=== PATIENT | female | born 1990 | race African-American/Black ===

== ENCOUNTER 2017-03-30 21:07 | Emergency (ER) | payer MEDICARE, BC ==
[~2017-03-30] VITALS: Ht 162.6 cm; Wt 75.0 kg
[2017-03-30 21:11] VITALS: Ht 162.6 cm; Wt 75.0 kg
[2017-03-30] MEDS ORDERED: SOD CHLORIDE 0.9% 1,000 ML IV STA (23:56)
[2017-03-30] MEDS ORDERED: ONDANSETRON 4 MG INJ IV STA (23:56)
[2017-03-31] MEDS ORDERED: CITA10TA84 PO (00:34)
[2017-03-31] MEDS ORDERED: ASPI325T4 PO (00:34)
[2017-03-31] MEDS ORDERED: TACR1CAP PO (00:34)
[2017-03-31] MEDS ORDERED: PRAV20TA2 PO (00:34)
[2017-03-31] MEDS ORDERED: METF500T4 PO (00:34)
[2017-03-31] MEDS ORDERED: LOSA25TA5 PO (00:34)
--- NOTE | 2017-03-31 00:36 | ERD ---
ER Documentation Chief Complaint Date/Time DATE: 03/31/17 TIME: 00:32 Chief Complaint nausea vomiting diarrhea x 2 days HPI 26-year-old female presents to emergency department for complaints of multiple episodes of vomiting and diarrhea for 2 days. Patient denies any abdominal pain. Patient denies any blood in the stool or black stool. Patient denies any blood in the vomit. She denies hematuria or dysuria. Patient denies any fever or chills. Patient did not take any medication to help with symptoms. ROS All systems reviewed and are negative except as per history of present illness. Medications Home Meds Reported Medications Pravastatin Sodium (Pravastatin Sodium) Unknown Strength Tablet, PO HS, TAB 03/31/17 Losartan Potassium* (Losartan Potassium*) Unknown Strength Tablet, PO DAILY, TAB 03/31/17 Citalopram Hydrobromide* (Citalopram Hydrobromide*) Unknown Strength Tablet, PO DAILY, #30 TAB 03/31/17 Metformin Hcl* (Metformin Hcl*) Unknown Strength Tablet, PO WITH BREAKFAST DINNE , #60 TAB 03/31/17 Aspirin* (Aspirin*) Unknown Strength Tablet, PO DAILY, TAB 03/31/17 Tacrolimus* (Tacrolimus*) Unknown Strength Capsule, PO Q12, CAP 03/31/17 Allergies Allergies: Coded Allergies: No Known Allergy (Unverified , 03/30/17) PMhx/Soc History of Surgery: Yes (heart surgery, pacemaker placement) Hx Cardiac Disorders: Yes (heart disease congenital heart abnormality) Hx Miscellaneous Medical Probl: Yes (diabetes high blood pressure) FmHx Family History: No coronary disease, No diabetes, No other Physical Exam Vitals Vital Signs Date Time Temp Pulse Resp B/P Pulse Ox O2 Delivery O2 Flow Rate FiO2 03/30/17 21:11 98.3 83 20 138/68 100 Physical Exam GENERAL: The patient is well developed and appropriate for usual state of health, in no apparent distress. CHEST: Clear to auscultation bilaterally. There are no rales, wheezes or rhonchi. HEART: Regular rate and rhythm. No murmurs, clicks, rubs or gallops. No S3 or S4. ABDOMEN: Soft, nontender and nondistended. Hyperactive bowel sounds. No rebound or guarding. No gross peritonitis. No gross organomegaly or masses. No Aguayo sign or McBurney point tenderness. BACK: No midline or flank tenderness. EXTREMITIES: Equal pulses bilaterally. There is no peripheral clubbing, cyanosis or edema. No focal swelling or erythema. Full range of motion. Grossly neurovascularly intact. NEURO: Alert and oriented. Cranial nerves 2-12 intact. Motor strength in all 4 extremities with 5/5 strength. Sensation grossly intact. Normal speech and gait. SKIN: There is no apparent rash or petechia. The skin is warm and dry. HEMATOLOGIC AND LYMPHATIC: There is no evidence of excessive bruising or lymphedema. No gross cervical, axillary, or inguinal lymphadenopathy. Result Diagram: 03/31/172903/31/1729 Results 24 hrs Laboratory Tests Test 03/31/17 00:30 03/31/17 01:25 White Blood Count 10.710^3/ul Red Blood Count 3.9210^6/ul Hemoglobin 11.5g/dl Hematocrit 34.2% Mean Corpuscular Volume 87.2fl Mean Corpuscular Hemoglobin 29.3pg Mean Corpuscular Hemoglobin Concent 33.6g/dl Red Cell Distribution Width 12.4% Platelet Count 40774^3/UL Mean Platelet Volume 9.7fl Neutrophils % 80.1% Lymphocytes % 13.3% Monocytes % 5.8% Eosinophils % 0.1% Basophils % 0.2% Nucleated Red Blood Cells % 0.0/100WBC Neutrophils # 8.610^3/ul Lymphocytes # 1.410^3/ul Monocytes # 0.610^3/ul Eosinophils # 0.010^3/ul Basophils # 0.010^3/ul Nucleated Red Blood Cells # 0.010^3/ul Sodium Level 140mmol/L Potassium Level 3.7mmol/L Chloride Level 109mmol/L Carbon Dioxide Level 16mmol/L Anion Gap 19 Blood Urea Nitrogen 12mg/dl Creatinine 1.20mg/dl Glucose Level 164mg/dl Calcium Level 10.2mg/dl Total Bilirubin 0.2mg/dl Direct Bilirubin 0.00mg/dl Indirect Bilirubin 0.2mg/dl Aspartate Amino Transf (AST/SGOT) 24IU/L Alanine Aminotransferase (ALT/SGPT) 28IU/L Alkaline Phosphatase 126IU/L Total Protein 9.0g/dl Albumin 4.8g/dl Globulin 4.20g/dl Albumin/Globulin Ratio 1.14 Lipase 70U/L Urine Color LT. YELLOW Urine Clarity CLEAR Urine pH 5.5 Urine Specific [place] >=1.030 Urine Ketones 15 Urine Nitrite NEGATIVE Urine Bilirubin 1+ Urine Ictotest Pending Urine Urobilinogen 0.2 E.U./dL Urine Leukocyte Esterase TRACE Urine Microscopic RBC Pending Urine Microscopic WBC Pending Urine Hemoglobin TRACE Urine Glucose NEGATIVE% Urine Total Protein 2+ Current Medications Medications (Trade) Dose Ordered Sig/Sandra Route PRN Reason Start Time Stop Time Status Last Admin Dose Admin Sodium Chloride (NS) 1,000 ml @ 1,000 mls/hr Q1H STAT IV 03/30/17 23:56 03/31/17 00:55 DC 03/31/17 00:43 Ondansetron HCl (Zofran Inj) 4 mg ONCE STAT IV 03/30/17 23:56 03/30/17 23:57 DC 03/31/17 00:43 Patient was given Zofran here in the emergency department. After treatment, patient was able to tolerate po fluids here in the emergency department without any vomiting. There is no signs and symptoms of dehydration. Normal saline IV bolus was given here in emergency department for rehydration, patient tolerated IV fluids. Procedures/MDM Medical Decision Making: Patient's symptoms of vomiting and diarrhea most likely consistent with viral gastroenteritis. No symptoms of dehydration at this time. No electrolyte imbalance noted. There is low suspicion for abdominal emergencies at this time. Patients abdominal exam is normal at this time. Radiology exam is not indicated at this time. There is low suspicion for appendicitis, cholecystitis, abdominal aortic aneurysms or peritonitis at this time. There is low suspicion for sepsis. Patient appears well and is hemodynamically stable. She has trace of leukocytes in the urine and will be treated. Patient's CO2 is 16 but patient verbalized feeling much better, most active better after giving IV fluids here in emergency department. As per discussion with my attending physician, Dr. Kraus, agrees with plan of sending the patient home since patient feels much better afterwards. Low suspicion for DKA. Blood sugar is normal. Disposition: Home. Condition: Stable Prescription Zofran, Bentyl, ciprofloxacin Instructions: Patient is advised to take medications as prescribed. Patient is advised to rest, increase fluid intake and do brat diet for next 1-2 days and progress as tolerated. Patient is advised that if symptoms are worse, severe abdominal pain, uncontrolled vomiting, high fever, severe flank pain, worst signs and symptoms, to return to the emergency department immediately. Otherwise, patient can follow up with primary care doctor in 5-7 days. Departure Diagnosis: Primary Impression: Viral gastroenteritis Additional Impression: UTI (urinary tract infection) Urinary tract infection type: acute cystitis Hematuria presence: without hematuria Qualified Code: N30.00 - Acute cystitis without hematuria Condition: Stable Patient Instructions: Gastroenteritis, Viral (6Y-Adult) Additional Instructions: Patient is advised to take medications as prescribed. Patient is advised to rest , increase fluid intake and do brat diet for next 1-2 days and progress as tolerated. Patient is advised that if symptoms are worse, severe abdominal pain , uncontrolled vomiting, high fever, severe flank pain, worst signs and symptoms , to return to the emergency department immediately. Otherwise, patient can follow up with primary care doctor in 5-7 days. YENNY MCPHERSON NP March 31, 2017 00:36
[2017-03-31 01:03] LABS: ADD SCAN DIFF NO
[2017-03-31 01:09] LABS: BASOPHILS % 0.2 % (0.0-2.0); EOSINOPHILS % 0.1 % (0.0-7.0); HEMATOCRIT 34.2 % (37.0-47.0); HEMOGLOBIN 11.5 g/dl (12.0-16.0); LYMPHOCYTES # 1.4 10^3/ul (0.8-2.9); LYMPHOCYTES % 13.3 % (15.0-51.0); MEAN CORPUSCULAR HEMOGLOBIN 29.3 pg (29.0-33.0); MEAN CORPUSCULAR HGB CONC 33.6 g/dl (32.0-37.0); MEAN CORPUSCULAR VOLUME 87.2 fl (82.0-101.0); MEAN PLATELET VOLUME 9.7 fl (7.4-10.4); MONOCYTE # 0.6 10^3/ul (0.3-0.9); MONOCYTES % 5.8 % (0.0-11.0); NEUTROPHIL # 8.6 10^3/ul (1.6-7.5); NEUTROPHILS % 80.1 % (39.0-77.0); PLATELET COUNT 312 10^3/UL (140-415); RED BLOOD COUNT 3.92 10^6/ul (4.20-5.40); RED CELL DISTRIBUTION WIDTH 12.4 % (11.5-14.5); WHITE BLOOD COUNT 10.7 10^3/ul (4.8-10.8)
[2017-03-31 01:27] LABS: ALBUMIN 4.8 g/dl (3.3-4.9); ALBUMIN/GLOBULIN RATIO 1.14; BILIRUBIN,INDIRECT 0.2 mg/dl (0-1.1); BILIRUBIN,TOTAL 0.2 mg/dl (0.2-1.3); CALCIUM 10.2 mg/dl (8.4-10.2); CREATININE 1.2 mg/dl (0.44-1.00); POTASSIUM 3.7 mmol/L (3.5-5.1)
[2017-03-31 02:29] LABS: ADD UMIC YES; URINE BILIRUBIN (Dip) 1+ (NEGATIVE); URINE BLOOD (Dip) TRACE (NEGATIVE); URINE COLOR LT. YELLOW (YELLOW); URINE GLUCOSE (Dip) NEGATIVE (NEGATIVE); URINE KETONES (Dip) 15 (NEGATIVE); URINE LEUKOCYTE ESTERASE (Dip) TRACE (NEGATIVE); URINE NITRITE (Dip) NEGATIVE (NEGATIVE); URINE TOTAL PROTEIN (Dip) 2+ (NEGATIVE); URINE UROBILINOGEN (Dip) 0.2 E.U./dL (0.1-1.0)
[2017-03-31] MEDS ORDERED: ONDA4TAB14 PO (02:43)
[2017-03-31] MEDS ORDERED: DICY10CA60 PO (02:43)
[2017-03-31] MEDS ORDERED: CIPR500T4 PO (02:43)
[2017-03-31 02:49] LABS: ICTOTEST POSITIVE (NEGATIVE)
[2017-03-31 02:57] LABS: BACTERIA,URINE MANY; MUCUS,URINE MODERATE; SQUAMOUS EPITHELIAL CELL,UR MANY
== END 2017-03-31 02:53 | disposition home or self-care (01) ==
LOC: FTE 21:07
DX: A08.4 Viral intestinal infection, unspecified (principal); N30.00 Acute cystitis without hematuria; E11.9 Type 2 diabetes mellitus without complications; I50.9 Heart failure, unspecified; Z79.82 Long term (current) use of aspirin; Z95.0 Presence of cardiac pacemaker; Z79.84 Long term (current) use of oral hypoglycemic drugs
CPT/HCPCS: 36415; 80053; 81001; 83690; 85025; 96374; 99284; J2405; J7030; 81003

== ENCOUNTER 2017-09-15 07:29 | Emergency (ER) | payer MEDICARE, BC ==
[~2017-09-15] VITALS: Ht 167.6 cm; Wt 80.5 kg
[~2017-09-15 07:29] MED LIST: ASPI325T4 PO; CIPR500T4 PO; CITA10TA84 PO; DICY10CA60 PO; LOSA25TA5 PO; METF500T4 PO; ONDA4TAB14 PO; PRAV20TA2 PO; TACR1CAP PO
[2017-09-15 07:31] VITALS: Ht 167.6 cm; Wt 80.5 kg
--- NOTE | 2017-09-15 09:02 | ERD ---
ER Documentation HPI This is a 26-year-old female presenting to the emergency department for sore throat and fever 2 days. Patient states she has pain with swallowing. No difficulty swallowing or drooling. No muffled voice. Patient reports tactile fevers at home. Patient did not check her temperature. Patient reports her cousin was over at her house recently with similar symptoms. No cough, shortness breath or difficulty breathing. No wheezing. No earache or headache. No abdominal pain, nausea or vomiting. ROS All systems reviewed and are negative except as per history of present illness. Medications Home Meds Active Scripts Ibuprofen* (Motrin*) 400 Mg Tab, 400 MG PO Q6, #30 TAB Prov:RENATO SOLARES NP 09/15/17 Amoxicillin* (Amoxicillin*) 500 Mg Cap, 500 MG PO BID for 10 Days, CAP Prov:RENATO SOLARES NP 09/15/17 Ciprofloxacin Hcl* (Ciprofloxacin Hcl*) 500 Mg Tablet, 500 MG PO BID for 7 Days , TAB Prov:YENNY MCPHERSON NP 03/31/17 Ondansetron (Ondansetron Odt) 4 Mg Tab.rapdis, 4 MG PO Q8 Y for NAUSEA AND/OR VOMITING, #30 TAB Prov:YENNY MCPHERSON NP 03/31/17 Dicyclomine Hcl* (Bentyl*) 10 Mg Capsule, 20 MG PO QID, #20 CAP Prov:YENNY MCPHERSON CLIENT SUPPORT ASSOCIATE 03/31/17 Reported Medications Pravastatin Sodium (Pravastatin Sodium) Unknown Strength Tablet, PO HS, TAB 03/31/17 Losartan Potassium* (Losartan Potassium*) Unknown Strength Tablet, PO DAILY, TAB 03/31/17 Citalopram Hydrobromide* (Citalopram Hydrobromide*) Unknown Strength Tablet, PO DAILY, #30 TAB 03/31/17 Metformin Hcl* (Metformin Hcl*) Unknown Strength Tablet, PO WITH BREAKFAST DINNE , #60 TAB 03/31/17 Aspirin* (Aspirin*) Unknown Strength Tablet, PO DAILY, TAB 03/31/17 Tacrolimus* (Tacrolimus*) Unknown Strength Capsule, PO Q12, CAP 03/31/17 Allergies Allergies: Coded Allergies: No Known Allergy (Unverified , 03/30/17) PMhx/Soc History of Surgery: Yes (heart surgery, pacemaker placement) Hx Cardiac Disorders: Yes (heart disease congenital heart abnormality) Hx Miscellaneous Medical Probl: Yes (diabetes high blood pressure) Hx Alcohol Use: No Hx Substance Use: No Hx Tobacco Use: No Smoking Status: Never smoker Physical Exam Vitals Vital Signs Date Time Temp Pulse Resp B/P Pulse Ox O2 Delivery O2 Flow Rate FiO2 09/15/17 09:37 98.2 88 18 130/60 99 Room Air 09/15/17 07:31 98.0 83 18 132/61 99 Physical Exam Const: No acute distress, alert Head: Atraumatic Eyes: Normal Conjunctiva ENT: Normal External Ears, Nose and Mouth. Erythema to posterior pharynx and bilateral tonsils. No exudate noted. TMs normal bilaterally. Neck: Full range of motion..~ No meningismus. Resp: Clear to auscultation bilaterally. No wheezing, rhonchi or crackles. No stridor or labored breathing. No intercostal retractions. Cardio: Regular rate and rhythm, no murmurs Abd: Soft, non tender, non distended. Normal bowel sounds Skin: No petechiae or rashes Back: No midline or flank tenderness Ext: No cyanosis, or edema Neur: Awake and alert Psych: Normal Mood and Affect Procedures/MDM MDM: This is a 26-year-old female with sore throat and tactile fevers 2 days. She is afebrile upon arrival to ED and vital signs are stable. Physical exam reveals erythematous posterior pharynx and tonsils. Not kissing tonsils. No tonsillar exudate. Rapid strep swab positive. Patient remains afebrile and vitals are stable. Differential diagnosis includes but not limited to strep pharyngitis, pneumonia , viral pharyngitis, influenza, coxsackievirus, herpes simplex virus, Carlos Eduardo- Tilley virus, Respiratory syncytial virus and otitis media. Patient likely has viral pharyngitis. Patient diagnosis is strep pharyngitis. Patient is appropriate for outpatient management and will be discharged with prescription for Amoxicillin and Motrin. Instructed patient to follow up with primary care provider in the next 2-3 days for reassessment. Return to ED for any high fever, chest pain, difficulty breathing, shortness breath, wheezing, vomiting, diarrhea, abdominal pain or any new or worsening symptoms. Patient verbalizes understanding. All questions answered at discharge. Disclaimer: Inadvertent spelling and grammatical errors are likely due to EHR/ dictation software use and do not reflect on the overall quality of patient care. Also, please note that the electronic time recorded on this note does not necessarily reflect the actual time of the patient encounter. Departure Diagnosis: Primary Impression: Strep pharyngitis Condition: RENATO Lemus NP Sep 15, 2017 09:02
[2017-09-15] MEDS ORDERED: AMOX500C2 PO (09:26)
[2017-09-15] MEDS ORDERED: IBUP400T22 PO (09:26)
[2017-09-15 09:37] VITALS: BP 130/60; PULSE 88; RESP 18; TEMP 98.2
== END 2017-09-15 09:37 | disposition home or self-care (01) ==
LOC: FTE 07:29
DX: J02.0 Streptococcal pharyngitis (principal); E11.9 Type 2 diabetes mellitus without complications; Z79.82 Long term (current) use of aspirin; Z79.84 Long term (current) use of oral hypoglycemic drugs; Z95.0 Presence of cardiac pacemaker
CPT/HCPCS: 87880; 99283

== ENCOUNTER 2019-04-28 18:48 | Emergency (ER) | payer MEDICARE, BC ==
[~2019-04-28] VITALS: Ht 167.6 cm; Wt 76.3 kg
[~2019-04-28 18:48] MED LIST changes: +AMOX500C2 PO; +ASPI325T30 PO; -ASPI325T4 PO; +CITA10TA5 PO; -CITA10TA84 PO; +DICY10CA40 PO; -DICY10CA60 PO; +IBUP-1561 PO; +LOSA25TA12 PO; -LOSA25TA5 PO; +METF500T24 PO; -METF500T4 PO
[2019-04-28 18:52] VITALS: Ht 167.6 cm; Wt 76.3 kg
--- NOTE | 2019-04-28 21:05 | ERD ---
ER Documentation Chief Complaint Chief Complaint right wrist pain, states from playing bowling yesterday HPI This is a 28-year-old female who presents for evaluation of right wrist pain. T his occurred while bowling yesterday, no history of falls or direct trauma, pain is along the radial aspect of the hand, along the thumb down to the wrist she denies numbness or tingling. ROS All systems reviewed and are negative except as per history of present illness. Medications Home Meds Active Scripts Ibuprofen* (Motrin*) 400 Mg Tab, 400 MG PO Q6, #30 TAB Prov:RENATO SOLARES NP 09/15/17 Amoxicillin* (Amoxicillin*) 500 Mg Cap, 500 MG PO BID for 10 Days, CAP Prov:RENATO SOLARES NP 09/15/17 Ciprofloxacin Hcl* (Ciprofloxacin Hcl*) 500 Mg Tablet, 500 MG PO BID for 7 Days, TAB Prov:YENNY MCPHERSON NP 03/31/17 Ondansetron (Ondansetron Odt) 4 Mg Tab.rapdis, 4 MG PO Q8 PRN for NAUSEA AND/OR VOMITING, #30 TAB Prov:YENNY MCPHERSON NP 03/31/17 Dicyclomine HCl (Dicyclomine HCl) 10 Mg Capsule, 20 MG PO QID, #20 CAP Prov:YENNY MCPHERSON CUSTODIAL AIDE 03/31/17 Reported Medications Pravastatin Sodium (Pravastatin Sodium) Unknown Strength Tablet, PO HS, TAB 03/31/17 Losartan Potassium* (Losartan Potassium*) Unknown Strength Tablet, PO DAILY, TAB 03/31/17 Citalopram Hydrobromide* (Citalopram Hydrobromide*) Unknown Strength Tablet, PO DAILY, #30 TAB 03/31/17 Metformin Hcl* (Metformin Hcl*) Unknown Strength Tablet, PO WITH BREAKFAST DINNE, #60 TAB 03/31/17 Aspirin* (Aspirin*) Unknown Strength Tablet, PO DAILY, TAB 03/31/17 Tacrolimus* (Tacrolimus*) Unknown Strength Capsule, PO Q12, CAP 03/31/17 Allergies Allergies: Coded Allergies: No Known Allergy (Unverified , 03/30/17) PMhx/Soc History of Surgery: Yes (heart transplant, pacemaker placement) Anesthesia Reaction: No Hx Neurological Disorder: No Hx Respiratory Disorders: No Hx Cardiac Disorders: Yes (congenital heart abnormality,HTN) Hx Psychiatric Problems: No Hx Miscellaneous Medical Probl: Yes (diabetes) Hx Alcohol Use: No Hx Substance Use: No Hx Tobacco Use: No Smoking Status: Never smoker Physical Exam Vitals Vital Signs Date Temp Pulse Resp B/P (MAP) Pulse Ox O2 O2 Flow FiO2 Time Delivery Rate 04/28/19 98.9 90 18 169/90 99 18:52 (116) Physical Exam Const: Afebrile, nontoxic Head: Atraumatic Eyes: Normal conjunctiva ENT: Normal external ears, nose and mouth. Neck: Resp: Normal respiratory effort Cardio: Abd: Skin: Back: Ext: Right hand: There is tenderness along the MCP area, there is no deformities noted, no abrasions or lacerations, cap refill is less than 2 seconds, there is no snuffbox tenderness, radial pulses 2+, range of motion is intact Psych: Normal mood and affect Procedures/MDM 28-year-old female presents for relation of wrist pain. No neurovascular defi cits noted on exam, no sign of infection, her wrist x-ray was negative, and she had no snuffbox tenderness, recommended supportive care, splint at night as needed, at discharge patient in no distress. Departure Diagnosis: Primary Impression: Pain in wrist Laterality: unspecified laterality Qualified Codes: M25.539 - Pain in unspecified wrist Condition: Stable STEPHANIE KNOWLES MD Apr 28, 2019 21:05
[2019-04-28 21:30] VITALS: BP 142/97; PULSE 82; RESP 15
== END 2019-04-28 21:37 | disposition home or self-care (01) ==
LOC: E/R 18:48
DX: M25.531 Pain in right wrist (principal); I10 Essential (primary) hypertension; E11.9 Type 2 diabetes mellitus without complications; Z79.82 Long term (current) use of aspirin; Z79.84 Long term (current) use of oral hypoglycemic drugs; Z95.0 Presence of cardiac pacemaker